=== PATIENT | female | born 1980 | race Caucasian/White ===

== ENCOUNTER → 2019-04-06 14:38 | Outpatient (CLI) | payer OTHER, SELFPAY ==
[2019-04-06 16:13] LABS: BUN 16 mg/dL (7-18); Glucose 78 mg/dL (74-106)
[2019-04-06 16:14] LABS: Anion Gap 8 (5-15); Calcium,Total 8.8 mg/dL (8.5-10.1); Chloride 103 mmol/L (98-107); EST Glomerular Filtration Rate 85 mL/min (>60); Est Glom Filt Rate - Afr Amer 103 mL/min (>60); Potassium 3.7 mmol/L (3.5-5.1); Sodium Level 141 mmol/L (136-145); T4 Total, Thyroxin 10.7 ug/dL (4.8-13.9); Thyroid Stim Hormone (TSH) 1.65 uIU/mL (0.358-3.74)
== END ==
PROVIDERS: Family Provider Family Medicine; PCP Family Medicine; Referring Provider Family Medicine; Visit Provider Family Medicine
DX: Z00.00 Encounter for general adult medical examination without abnormal findings (principal); E03.9 Hypothyroidism, unspecified; I10 Essential (primary) hypertension
CPT/HCPCS: 36415; 80048; 84436; 84443

== ENCOUNTER 2019-05-25 12:00 | Outpatient (RCR) | payer OTHER, SELFPAY ==
[2019-05-05 15:05] VITALS: BMI 37.8
--- NOTE | 2019-05-25 09:25 | HP.PTEVAL ---
Patient's Visit Information DIAMOND BLEVINS is a 38 year old F referred to Physical Therapy by Malissa Herndon MD with a diagnosis of Malasia. Date of Evaluation: 05/19/19 Physical Therapist: Mark Caputo DPT - Visit Plan Frequency: 1-2x /Week Duration: 4-6 Weeks Plan: Start with extension progress: Prone on elbows--> to REIL only if not causing increased symptoms. Add in HS and hip flexor stretching. Progress to neutral spine core stability execises as tolerated. May use modalities if needed. - Subjective Findings: Pt. is here today for her initial evaluation with diagnosis of malasia. Pt. reprots having low back pain on and off for years, but recently has becoming worse. Pt. has been managing with animal care taker with decent results. Pt. reports pain that starts in the R side of her lumbar spine into her R buttock region. Pt. rates pain at 3/10, worst at 5/10. 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 Pt. reports increased pain with lifting, bending and twisting. Decreased pain with walking and sitting is usually worse. Pt. reprots no pain while sleeping and mornings are usually okay. She denies N/T and has not had any imaging. Pt. is hopeful to reduce symptoms in order to get back to all recreational an work activties without limitations. - Pain Lumbar spine Pain Intensity (Out of 10): 3 Pain Intensity Range: 1, 5 - Objective POSTURE: Pt. has general flexed posture, but is able to improve. Pt. has slight anterior pelov tilt. PALPATION: Pt. has tenderness with spring testing at L3-S1 worse at L4/L5. No radiacular symptoms with spring testing. Slight hypomobility noted at L4/L5. NEURO: normal throuhgout. ROM: Lumbar spine: flexion nil loss increase NW, ext min loss increase- better; SB nil loss bilat NE, rotatino nil loss nitza NE. Pt. has tight HS bilaterally. MMT: PT. has full strength of BLEs, execept 4/5 hip abd bilat. Core strength- poor. GAIT: Pt. has normal gait pattern, but does have slight flexed posture. Pt. has greatest difficulty with going from sitting to standing motions. - Special Tests L/S Slump test left side: Negative L/S Slump test right side: Negative L/S Left Straight Leg Raise: Negative L/S Right Straight Leg Raise: Negative - Goals Goal 1:: Pt. to be I with HEP. Goal Time Frame: 4-6 Weeks Goal 2:: Pt. to have full lumbar ROM without increase in symptoms. Goal Time Frame: 4-6 Weeks Goal 3:: Pt. to ahve increased core strength to fair. Goal Time Frame: 4-6 Weeks Goal 4:: Pt. to work with 0-1/10 pain in lumbar spine. Goal Time Frame: 4-6 Weeks Goal 5:: Pt. to be able to sit for atleast 30 min without increase in symptoms. Goal Time Frame: 4-6 Weeks - Rehabilitation Potential Physical Therapy Diagnosis: Pt. hs signs and symptoms consistent with low back pain with minamal radicular symptoms. Pt. has signs of a lumbar derangement and would benefit from light extension motions. Pt. did well with prone on elbows, but has slight increase in symptoms with REIL. Pt. would benefit from PT to work on lumbar ROM and core stability exercises. Rehabilitation Potential: Excellent - Anticipated Interventions Patient/Client Instruction: Educate patient on: Condition, Plan of Care, Risk Factors, Benefits of Fitness Program For the Purpose of:: To improve decision making, To facilitate caregiver knowledge, To improve self management, To prevent re-injury, To improve ability to perform tasks related to life management, To improve tolerance to ADL's Therapeutic Exercise to Include: Strength training, Power training, Postural training, Flexibilty training, Passive ROM, Active ROM, Dynamic Lumbar Stabilization, [place] Exercises For the Purpose of:: To decrease pain, To decrease swelling/inflammation, To increase ROM, To improve nutrient delivery to tissue, To increase oxygenation perfusion, To improve muscle performance and motor function, To improve health of tissue, To decrease soft tissue restriction, To increase flexibility/ROM IF ES: Yes Cryotherapy (ice pack, ice massage): Yes Ultrasound (thermal/non thermal): Yes For the Purpose of:: To decrease pain, To decrease swelling/inflammation, To increase ROM, To improve nutrient delivery to tissue, To increase oxygenation perfusion, To improve muscle performance and motor function Thank you for the opportunity to evaluate your patient. For Medicare and Medicare HMO plans, please review the plan of care and approve it. It will need to be FAXED BACK to us at [phone] for Medicare purposes. For Medicare only, by signing this I certify the plan of care. Please let me know if there are questions or concerns regarding this plan of care. Physician Signature: Date:
== END 2019-05-25 19:00 | disposition home or self-care (01) ==
LOC: PT 12:00
PROVIDERS: Family Provider Family Medicine; PCP Family Medicine; Referring Provider Family Medicine; Visit Provider Family Medicine
DX: M79.10 Myalgia, unspecified site (principal)
CPT/HCPCS: 97110; 97161

== ENCOUNTER → 2020-01-06 09:49 | Outpatient (CLI) | payer OTHER, SELFPAY ==
[2019-05-30 13:32] VITALS: BMI 37.8
[2020-01-06 13:11] LABS: Anion Gap 6 (5-15); BUN 16 mg/dL (7-18); BUN/Creat Ratio 19.1 RATIO (10-20); Chloride 103 mmol/L (98-107); Creatinine, Serum 0.84 mg/dL (0.55-1.02); EST Glomerular Filtration Rate 80 mL/min (>60); Est Glom Filt Rate - Afr Amer 97 mL/min (>60); Glucose 107 mg/dL (74-106); Potassium 3.6 mmol/L (3.5-5.1); Sodium Level 136 mmol/L (136-145); Thyroid Stim Hormone (TSH) 1.89 uIU/mL (0.358-3.74)
== END ==
PROVIDERS: PCP Family Medicine; Visit Provider Family Medicine
DX: I10 Essential (primary) hypertension (principal); E03.9 Hypothyroidism, unspecified
CPT/HCPCS: 36415; 80048; 84443

== ENCOUNTER → 2020-02-03 | Outpatient (CLI) | payer OTHER, SELFPAY ==
[2020-02-03 11:29] VITALS: BMI 37.8
[2020-02-07 14:51] LABS: HPV APTIMA, High Risk Negative (Negative)
== END | disposition home or self-care (01) ==
LOC: LABSPEC 16:35
PROVIDERS: PCP Family Medicine; Referring Provider Nurse Practitioner Women's Health; Visit Provider Nurse Practitioner Women's Health
DX: Z12.4 Encounter for screening for malignant neoplasm of cervix (principal)
CPT/HCPCS: 87624; 88175; G0145

== ENCOUNTER → 2020-03-26 12:30 | Outpatient (CLI) | payer OTHER, SELFPAY ==
[2020-02-03 11:29] VITALS: BMI 37.8
--- NOTE | 2020-03-26 12:33 | RAD_ITS ---
STUDY: X-RAY - LUMBAR SPINE REASON FOR EXAM: Female, 39 years old. Backache after lifting a heavy object TECHNIQUE: 5 view(s) of the lumbar spine were obtained. COMPARISON: None FINDINGS: Normal lumbar lordosis. There is no substantial scoliosis. There is a normal alignment of the vertebrae. Normal vertebral bodies and endplates. Normal disc space heights. The soft tissue structures are unremarkable. RAD/L/S Spine Min 4 Views IMPRESSION: Normal x-ray examination of the lumbar spine. Electronically Signed: Augustin Stevens MD at 13:28 EDT , Service support ,
== END ==
PROVIDERS: PCP Family Medicine; Referring Provider Family Medicine; Visit Provider Family Medicine
DX: M54.9 Dorsalgia, unspecified (principal)
CPT/HCPCS: 72110

== ENCOUNTER 2020-05-22 13:30 | Outpatient (RCR) | payer OTHER, SELFPAY ==
[2020-02-03 11:29] VITALS: BMI 37.8
--- NOTE | 2020-04-05 18:13 | HP.PTEVAL_ITS ---
Patient's Visit Information DIAMOND BLEVINS is a 39 year old F referred to Physical Therapy by Dr. Malissa Herndon MD with a diagnosis of LUMBAR SPINE. Date of Evaluation: 04/05/20 Physical Therapist: Keanu Gann, PT, Cert MDT, OCS - Visit Plan Frequency: 2x /Week Duration: 4 Weeks Plan: PT INTERVENTIONS JOEY EX'S ,MANUAL THERAPY ,POSTURAL EX'S,DLS ABD/BACK - Subjective This 39 y/o female presents to physical therapy with LUMBAR STRAIN. Patient has had pain past 2years . Patient lifting furniture next day severe pain unable to bed OOB. Another day 40 bags several with similar pain. Aggravating factors lifting ,bending sitting,change of motion. Seen DR lyudmila berman CP. Patient did have some parathesia toes right,but improved. Coughing/sneezing +. Bowel/bladder -.Patient see's chiropractor. Patient symptoms affects QOL and job demands. SOCAIL: . 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 GAIT: reciprocal pattern. NEURO: deneis parathesia/tingling ,reflexes L3-4,L4-5,L5-S1 2/3. MMT: quads/hams/hip flexion 4/5,ankle 4/5. L UMBAR ROM: flexion min loss,extension min,side glides WFL. FLEXABLITY: [place] loss with + ANR left - Special Tests L/S Slump test left side: Positive L/S Slump test right side: Negative L/S Left Straight Leg Raise: Negative L/S Right Straight Leg Raise: Positive Lumbar Standing: Flexion - Mechanical Response: No effect Lumbar Standing: Flexion - Symptoms During Testing: Increases Lumbar Standing: Flexion - Symptoms After Testing: Worse Lumbar Standing: Extension - Mechanical Response: Increases motion Lumbar Standing: Extension - Symptoms During Testing: Decreases Lumbar Standing: Extension - Symptoms After Testing: Better Comments:: LUMBAR Lumbar Standing: Right Side Glides - Mechanical Response: No effect Lumbar Standing: Right Side [place] - Symptoms During Testing: No effect Lumbar Standing: Right Side [place] - Symptoms After Testing: No effect Lumbar Standing: Left Side [place] - Mechanical Response: No effect Lumbar Standing: Left Side [place] - Symptoms During Testing: No effect Lumbar Standing: Left Side [place] - Symptoms After Testing: No effect Lumbar Lying: Flexion - Mechanical Response: No effect Lumbar Lying: Flexion - Symptoms During Testing: Abolishes Lumbar Lying: Flexion - Symptoms After Testing: Worse Lumbar Lying: Extension - Mechanical Response: Increases motion Lumbar Lying: Extension - Symptoms During Testing: Abolishes Lumbar Lying: Extension - Symptoms After Testing: Better - Goals Goal 1:: Patient to be I with HEP. Goal Time Frame: 4-6 Weeks Goal 2:: Patient to improve posture/body mechanics. Goal Time Frame: 4-6 Weeks Goal 3:: Patient decrease lumbar pain and radicular symptoms by 75% or > to improve function. Goal Time Frame: 4-6 Weeks Goal 4:: Patient to inmprove lumbar ROM for function of recovery Goal Time Frame: 4-6 Weeks Goal 5:: Patient to back owestry back by 5 points or > to improve QOL. Goal Time Frame: 4-6 Weeks Goal 6:: Patient be d/c to prophalxis Goal Time Frame: 4-6 Weeks - Rehabilitation Potential Physical Therapy Diagnosis: Patient appears to have lumbar derrangement with disc involvemnt with symptoms worse with flexion ,sitting,lifting ,intermitant symptoms abolsihed with joey extension with increase mechanical motion thus benifit from skilled PT Rehabilitation Potential: Good - Anticipated Interventions Patient/Client Instruction: Educate patient on: Condition, Plan of Care For the Purpose of:: To decrease pain, To increase ROM, To improve muscle performance and motor function, To improve ability to perform ADL's, To increase tolerance to activity/condition/position, To improve ability of physical actions for home/community/work/leisure, To improve health of tissue, To decrease soft tissue restriction, To increase flexibility/ROM, To reduce risk of recurrence, To prevent re-injury Therapeutic Exercise to Include: Strength training, Postural training, Flexibilty training, Dynamic Lumbar Stabilization, Joey Exercises For the Purpose of:: To decrease pain, To increase ROM, To increase oxygenation perfusion, To improve muscle performance and motor function, To increase tolerance to activity/condition/position, To improve ability of physical actions for home/community/work/leisure Thank you for the opportunity to evaluate your patient. For Medicare and Medicare HMO plans, please review the plan of care and approve it. It will need to be FAXED BACK to us at [phone] for Medicare purposes. For Medicare only, by signing this I certify the plan of care. Please let me know if there are questions or concerns regarding this plan of care. Physician Signature: Date:
--- NOTE | 2020-09-05 13:35 | HP.PT.NRP ---
DIAMOND BLEVINS was seen in my office for initial evaluation on 04/05/20. The following Plan of Care was established for this patient: Initial Frequency: 2x /Week Initial Duration: 4 Weeks Patient/Client Instruction: Educate patient on: Condition, Plan of Care For the Purpose of:: To decrease pain, To increase ROM, To improve muscle performance and motor function, To improve ability to perform ADL's, To increase tolerance to activity/condition/position, To improve ability of physical actions for home/community/work/leisure, To improve health of tissue, To decrease soft tissue restriction, To increase flexibility/ROM, To reduce risk of recurrence, To prevent re-injury Therapeutic Exercise to Include: Strength training, Postural training, Flexibilty training, Dynamic Lumbar Stabilization, Joey Exercises For the Purpose of:: To decrease pain, To increase ROM, To increase oxygenation perfusion, To improve muscle performance and motor function, To increase tolerance to activity/condition/position, To improve ability of physical actions for home/community/work/leisure This patient was last seen in our office . Pertinent comments regarding their Physical therapy will appear below: Patient seen for PT for back pain for DLS and joey ex's . Doing well thus d/c At this point I will be discontinuing this patient from physical therapy. I would be happy to see this patient again in the future if found appropriate by the physician. Thank you! Keanu Gann, PT, Cert MDT, OCS
== END 2020-05-22 19:00 | disposition home or self-care (01) ==
LOC: PT 13:30
PROVIDERS: PCP Family Medicine; Referring Provider Family Medicine; Visit Provider Family Medicine
DX: S39.012D Strain of muscle, fascia and tendon of lower back, subsequent encounter (principal)
CPT/HCPCS: 97110; 97162; 97530

== ENCOUNTER 2021-01-02 07:35 | Outpatient (RCR) | payer OTHER, SELFPAY ==
[2020-02-03 11:29] VITALS: BMI 37.8
== END 2021-01-04 23:59 ==
LOC: EMPH 07:35
PROVIDERS: PCP Family Medicine; Visit Provider Family Medicine Geriatric Medicine
DX: Z03.818 Encounter for observation for suspected exposure to other biological agents ruled out (principal)
CPT/HCPCS: 87426

== ENCOUNTER → 2021-07-10 12:47 | Outpatient (CLI) | payer OTHER, SELFPAY ==
--- NOTE | 2021-07-10 12:51 | BI_ITS ---
MAMMOGRAPHY - BILATERAL SCREENING REASON FOR EXAM: Female, 40 years old. Routine annual screening examination. PERTINENT HISTORY: Aunt with breast cancer. TECHNIQUE: Digital bilateral breast guero (3D mammographic acquisition) in the CC and MLO projections. 2-D mediolateral oblique (MLO) and craniocaudad (CC) views of both breasts were obtained. CAD: Full Field Digital Mammography with Computer Added Detection was performed. COMPARISON: None. Baseline examination. FINDINGS: Breast Composition: The breasts are heterogeneously dense, which may obscure small masses. There are no dominant masses or suspicious calcifications. Small benign-appearing bilateral axillary lymph nodes. No other significant abnormalities are identified. BI/SCRN MAMM (CAD)W/GUERO BILAT IMPRESSION: Negative screening mammogram. Yearly followup mammogram recommended. (A) ASSESSMENT CATEGORY: BIRADS Category 2: Benign. A letter regarding these results will be sent to the patient by the facility within 30 days. Approximately 10% of breast cancers are not detected by mammography. A normal mammogram should not delay biopsy of a clinically suspicious abnormality. [id number] Electronically Signed: Archie Young MD at 14:10 EDT , Service support ,
[2021-07-10 14:36] LABS: Absolute Lymphocyte Count 2.26 X10^3/uL (0.83-4.51); Absolute Neutrophil Count 5.4 X10^3/uL (2.0-7.7); Basophil# 0.07 X10^3/uL; Basophil% 0.8 % (0-1); Eosinophils% 2.3 % (0-5); Hematocrit 40.9 % (37-47); Lymphocyte # 2.26 X10^3/ul (0.83-4.51); Lymphocyte % 26.4 % (19-41); Mean Corp Hgb Conc 31.8 g/dL (32-36); Mean Corpuscular Hgb 28.3 pg (27.0-32.0); Mean Corpuscular Volume 88.9 fL (81-99); Mean Platelet Vol. 9.3 fl (6.2-12.0); Monocyte# 0.64 X10^3/uL; Monocyte% 7.5 % (0-10); NRBC Flagged by Analyzer 0 % (0-5); Neutrophil # 5.35 X10^3/uL (2.7-7.7); Neutrophil % 62.6 % (47-70); Platelet Count 359 K/mm3 (150-450); RBC Distribution Width SD 39.1 fl (35.1-43.9); White Blood Count 8.6 K/mm3 (4.4-11.0)
== END ==
LOC: OPBI 12:48 → LAB 14:16
PROVIDERS: PCP Family Medicine; Referring Provider Nurse Practitioner Women's Health; Visit Provider Nurse Practitioner Women's Health
DX: N93.9 Abnormal uterine and vaginal bleeding, unspecified (principal); Z12.31 Encounter for screening mammogram for malignant neoplasm of breast; Z13.29 Encounter for screening for other suspected endocrine disorder
CPT/HCPCS: 36415; 77063; 77067; 84443; 85025

== ENCOUNTER → 2021-07-19 08:03 | Outpatient (CLI) | payer OTHER, SELFPAY ==
--- NOTE | 2021-07-19 08:05 | US_ITS ---
STUDY: ULTRASOUND TRANSVAGINAL CLINICAL: Female, 40 years old. menorrhagia TECHNIQUE: Transabdominal and Transvaginal COMPARISON: None. FINDINGS: Normal uterine size measuring 9.0 x 4.5 x 5.8 cm in maximal craniocaudal dimension. There are no myometrial masses. Normal endometrial thickness measuring 9 mm. 2.7 cm oval isoechoic mass either within or adjacent to the posterior aspect of the endometrium in the body the uterus worrisome for endometrial mass or submucosal fibroid. Correlation with hysteroscopy is recommended.. Normal uterine cervix. Normal right ovary, measuring 4.5 x 2.4 x 4.3 cm. There are multiple follicles without a dominant cyst. Normal left ovary, measuring cm. There are multiple follicles without a dominant cyst. There is no free fluid in the pelvis. Polycystic ovary disease: No. US/Pelvic (Non ) IMPRESSION: 2.7 cm oval isoechoic mass either within or adjacent to the posterior aspect of the endometrium and correlation with hysteroscopy would be useful. Electronically Signed: Darvin Lazo MD at 17:05 EST Tel , Service support ,
--- NOTE | 2021-07-19 08:05 | US_ITS ---
STUDY: ULTRASOUND TRANSVAGINAL CLINICAL: Female, 40 years old. menorrhagia TECHNIQUE: Transabdominal and Transvaginal COMPARISON: None. FINDINGS: Normal uterine size measuring 9.0 x 4.5 x 5.8 cm in maximal craniocaudal dimension. There are no myometrial masses. Normal endometrial thickness measuring 9 mm. 2.7 cm oval isoechoic mass either within or adjacent to the posterior aspect of the endometrium in the body the uterus worrisome for endometrial mass or submucosal fibroid. Correlation with hysteroscopy is recommended.. Normal uterine cervix. Normal right ovary, measuring 4.5 x 2.4 x 4.3 cm. There are multiple follicles without a dominant cyst. Normal left ovary, measuring cm. There are multiple follicles without a dominant cyst. There is no free fluid in the pelvis. Polycystic ovary disease: No. US/Transvaginal Non- IMPRESSION: 2.7 cm oval isoechoic mass either within or adjacent to the posterior aspect of the endometrium and correlation with hysteroscopy would be useful. Electronically Signed: Darvin Lazo MD at 17:05 EST Tel , Service support ,
== END ==
PROVIDERS: PCP Family Medicine; Referring Provider Nurse Practitioner Women's Health; Visit Provider Nurse Practitioner Women's Health
DX: N92.0 Excessive and frequent menstruation with regular cycle (principal)
CPT/HCPCS: 76830; 76856

== ENCOUNTER 2021-10-22 09:05 | Day surgery (SDC) | payer OTHER, SELFPAY ==
[2021-10-16 08:18] LABS: Absolute Lymphocyte Count 3.65 X10^3/uL (0.83-4.51); Absolute Neutrophil Count 6.6 X10^3/uL (2.0-7.7); Basophil# 0.06 X10^3/uL; Basophil% 0.5 % (0-1); Eosinophil# 0.24 X10^3/uL; Eosinophils% 2.1 % (0-5); Hematocrit 40.2 % (37-47); Hemoglobin 12.8 g/dL (12.0-15.0); Lymphocyte # 3.65 X10^3/ul (0.83-4.51); Lymphocyte % 32.2 % (19-41); Mean Corp Hgb Conc 31.8 g/dL (32-36); Mean Corpuscular Hgb 28.3 pg (27.0-32.0); Mean Corpuscular Volume 88.7 fL (81-99); Mean Platelet Vol. 9.5 fl (6.2-12.0); Monocyte# 0.72 X10^3/uL; Monocyte% 6.3 % (0-10); NRBC Flagged by Analyzer 0 % (0-5); Neutrophil # 6.55 X10^3/uL (2.7-7.7); Neutrophil % 57.8 % (47-70); Platelet Count 394 K/mm3 (150-450); RBC Distribution Width CV 12.4 % (11.6-14.6); Red Blood Count 4.53 M/mm3 (4.2-5.4); White Blood Count 11.3 K/mm3 (4.4-11.0)
[2021-10-16 08:35] LABS: Anion Gap 8 (5-15); BUN 19 mg/dL (7-18); BUN/Creat Ratio 24.8 RATIO (10-20); Chloride 100 mmol/L (98-107); Creatinine, Serum 0.76 mg/dL (0.55-1.02); EST Glomerular Filtration Rate 88 mL/min (>60); Est Glom Filt Rate - Afr Amer 107 mL/min (>60); Glucose 92 mg/dL (74-106); Potassium 3.5 mmol/L (3.5-5.1); Sodium Level 136 mmol/L (136-145)
--- NOTE | 2021-10-22 09:09 | HP.PCM_ITS ---
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 Is patient in pain?: No Allergies No Known Allergies Allergy (Verified 10/09/21 15:03) Medications lisinopril 10 mg-hydrochlorothiazide 12.5 mg tablet 1 tab PO DAILY 05/05/19 [History Confirmed 10/09/21] diphenhydramine HCl 25 mg capsule 25 mg PO TID PRN 07/10/21 [History Confirmed 10/09/21] melatonin 3 mg capsule 3 mg PO HS PRN 07/10/21 [History Confirmed 10/09/21] potassium chloride 10 mEq capsule,extended release 10 meq PO DAILY 07/10/21 [History Confirmed 10/09/21] Post menopausal: No Patient : No : No [facility] Medical History COVID-19 vaccine administered COVID-19 vaccine administered Hypertension Hyperthyroidism Menorrhagia with regular cycle Surgical History History of cholecystectomy History of tonsillectomy History of wisdom tooth extraction Family History Father Heart disease Other Hypertension Thyroid disorder Social History Smoking Status: Never smoker alcohol intake: never substance use type: does not use caffeine: No what type of physical activity do you participate in: bicycling frequency: 1-2 times per week seatbelt use: always do you feel safe at home: Yes 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 She is scheduled for a hysteroscopy D&C, symphion removal of fibroid and laparoscopic bilateral salpingectomy, Pregancy History 0 Elective abortions Hx Para Spontaneous abortions Hx # Term Pregnancies Ectopic pregnancies Hx # Pregnancies Multiple births # of living children ROS Const ROS Unobtainable: All systems reviewed & are unremarkable except as noted in H Resp Resp: Reports system reviewed and no additional complaints, except as documented; Denies cough GI GI: Reports as per HPI Psych Psych: Reports system reviewed and no additional complaints, except as documented Exam Const General: cooperative, healthy appearing, comfortable and no acute distress Resp Effort & Inspection: normal respiratory effort Skin General: no rashes or lesions noted Psych Appearance: grossly normal Speech and Movement: speech and movement normal Coding Level of Care Code Off vis,est,level 3 Diagnoses COVID-19 vaccine administered Z23 Menorrhagia with regular cycle N92.0 Assessment and Plan Assessment and Plan (1) COVID-19 vaccine administered: Status: Acute Comment: Maderna doses + booster (2) Menorrhagia with regular cycle: Status: Acute Comment: 2.5 cm submucosal lesion, plan symphion, laparoscopic bs and possible sendy Plan Details Goals & Barriers: Goals Improve balance Improve ability to work comfortably Decrease spasm UPDATE- I have seen the patient and performed any clinically relevant updates to the history and physical exam. Karli Anne MD
[2021-10-22 09:42] VITALS: BP 135/86; PULSE 83; RESP 18; TEMP 37.3; O2SAT 100; BMI 40.6
[2021-10-22 09:42] LABS: Internal QC Validated? YES +Cl - CLEAR BKGD; Pregnancy, Urine Negative Negative
[2021-10-22] MEDS: Lactated Ringers 1,000 ML 15 ML IV ×2 (09:55→11:45)
--- NOTE | 2021-10-22 10:40 | FALS_PTH ---
PATIENT: DIAMOND BLEVINS LOC: [facility] [place] U#:[id number] AGE/SX: 41/F ROOM: RE10/22/[address]: Dr. Karli Anne MD : 1980 BED: DIS: 10/22/2021 SPEC #: [id number] RECD: 10/22/21 14:50 STATUS: MISSY DAVEY #: [id number] SHRUTHI: 10/22/21 10:[address]: Karli Anne DEPT: SURGICAL PATHOLOGY RECD BY: Keith Deng ENTERED: 10/23/21 11:39 SP TYPE: FALL TUBES OTHR DR: MD Dr. Arnulfo Jiang MD Tissues: A - Fallopian tube Endometrium, NOS Procedures: Surgery Specimen Level II Surgery Specimen Level IV HEADER OPERATION: Hysteroscopy, D & C Symphion, hysteroscopic myomectomy PRE-OP DIAGNOSIS: Menorrhagia TISSUE SUBMITTED: A ? Bilateral fallopian tubes, B ? Endometrial curettings MICROSCOPIC DIAGNOSIS A. Bilateral fallopian tubes, salpingectomy: Bilateral fallopian tubes, no pathologic diagnosis. B. Endometrial curettings: Secretory endometrium. Fragments of myometrium, consistent with leiomyoma. Fragments of benign endocervical mucosa. SJ:clifton 10/24/2021 MICROSCOPIC DESCRIPTION Slides are reviewed. GROSS DESCRIPTION A - Received in fixative is one container labeled with the patient's name and designated bilateral fallopian tubes. The specimen consists of two fallopian tubes with an average length of 6 cm and has an average diameter of 0.6 cm. One fallopian tube contains a paratubal cyst measuring 1 cm and containing clear fluid. Both fallopian tubes have normal fimbriated ends. Tool And Cutter Grinder sections are submitted in two cassettes as follows: 1 - one fallopian tube, 2 - the other fallopian tube. B - Received in fixative is one container labeled with the patient's name and designated endometrial curettings. The specimen consists of multiple irregular and somewhat rubbery fragments of pink-cooley soft tissue that in aggregate measure 6 x 4 x 1.8 cm. The specimen is totally submitted in 12 cassettes. / AM:clifton 10/23/2021 TC:1 CPT: 50968 x2, 55170
--- NOTE | 2021-10-22 10:51 | PCM.OPRPT ---
Problems Associated Problem List Diagnoses (1) Menorrhagia with regular cycle: (2) COVID-19 vaccine administered: Report of Operation Date of Procedure: 10/22/21 Pre-Operative Diagnosis: aub submucosal fibroid Post-Operative Diagnosis: same Surgery/Procedure Performed:: hysteroscopic myomectomy with symphion device, d and c, laparoscopic bilateral salpingectomy Description of Surgical Findings:: submucosal fibroid bilateral tubes left sigmoid to adnexal adhesions customer experience associate: Jeni Bermeo Type of Anesthesia: General Special Medications: none Specimen's removed: emc fibroid bilateral tubes Drains: hamm Estimated Blood Loss (mL): 75 Fluids Replaced: crystalloid 1800 cc deficit Complications Patient was taken in the operating room and was placed under general anesthesia was prepped and draped in normal sterile fashion in the dorsal lithotomy position. Bladder was drained of clear urine and SCDs were on preoperatively. Uterus was sounded and a uterine manipulator was placed after dilating. Attention was then paid to the abdominal portion of the procedure and the umbilicus was elevated with towel clamps and injected with Marcaine and after a 5 mm incision was made and the Veress needle was entered into the abdomen confirmed to be intra-abdominal with a low opening pressure of less than 5 mmHg. Abdomen was insufflated with CO2 gas and a 5 mm optical trocar was placed under direct visualization. A left lower quadrant 5 mm port and a 5 mm port suprapubically and then llq were placed under direct visualization. Uterus was well visualized and bilateral fallopian tubes identified and bilateral tubes were elevated and transecting across the mesosalpinx and the attachment to the uterine corpus bilaterally the tubes were removed without complication. llq adhesions were taken down to perform the salpingectomy. Excellent hemostasis was noted. Fallopian tubes were removed through the lower port sites without complication. Liver and upper abdomen were visualized notably within normal limits and no other gross abnormalities were seen in the abdomen. All instruments removed from the abdomen after gas was desufflated. Port sites were closed with 3-0 Monocryl Steri's and op sites were applied. Uterine manipulator removed A weighted speculum was placed in the vagina and the anterior lip of the cervix was grasped with a single-tooth tenaculum. A paracervical block was placed with 1% lidocaine. Cervix was progressively dilated to allow passage of a 5 mm hysteroscope. The lining was fully visualized and noted to have a large submucosal fibroid present. Uterine sounded to 10 cm. Using the symphion device, the submucosal fibroid was progressively removed without complications. Direct visual curettage was performed using the device , and all specimens were sent to pathology. All instruments were removed from the vagina and excellent hemostasis was noted. Patient was awoken and taken to recovery in stable condition. All instruments removed from the vagina and patient was awoken and taken recovery in stable condition. Multi Select Codes Urinary/Genital Urinary/Genital CPT Codes: 85373 Hysteroscopic myomectomy (3 cm) and 72251 Laproscopic BS/O
[2021-10-22] MEDS: Bupivacaine 0.25% 30 ML Vial (11:29)
--- NOTE | 2021-10-22 11:55 | DCINST_ITS ---
Discharge Instructions Diet Discharge Diet: No restrictions Activity Discharge Activity: Return to Normal Activity, May Not Drive (for 2 weeks or while taking narcotic pain meds.), May Shower and May Take a Tub Bath (in 7 days) May resume sexual activity in: 1 week Weight Bearing Status: Full weight bearing Dressing / Incision Call your doctor if your incision/area has: Continuous Slow Oozing, Sudden Increased Bleeding, Increased Pain/ Swelling, Increased Redness and Foul Smelling Discharge Call your doctor if you observe: Fever of 101 or Higher, Using more than 1 pad per hour, Shortness of breath, Chest pain and Uncontrolled pain Suture Line Care: Avoid Pulling/Pushing and Avoid Pinching/Bending Remove Dressing in: 1 week (if present) Cleanse incision/area with: Soap & Water and Keep Dressing Clean & Dry Follow Up Care When: Call to make an appointment with your doctor for a fu/incision check in 1- 2 weeks. Test Results: Test results from this visit will be discussed in further detail at your follow-up appointment, if applicable. Discharge Plan Admission Primary Reason for Your Visit: sterilization and fibroid removal hysteroscopically Attending Provider: Karli Anne Primary Care Provider: Arnulfo Rainey Consulting Providers: Curt Rhodes Discharge Orders/Prescriptions Prescriptions: New oxycodone-acetaminophen [Percocet] 5-325 mg tablet 1 tab PO Q6H PRN (Reason: pain) 7 Days Qty: 20 RF: 0 naproxen [naproxen] 500 MG tablet 500 mg PO BID PRN PRN (Reason: Pain) Qty: 30 RF: 1 Continued lisinopril-hydrochlorothiazide 10-12.5 mg tablet 1 tab PO DAILY RF: 0 potassium chloride 10 mEq capsule, extended release 10 meq PO DAILY RF: 0 diphenhydramine HCl [Benadryl] 25 mg capsule 25 mg PO TID PRN (Reason: Sleep) RF: 0 melatonin 3 mg capsule 3 mg PO HS PRN (Reason: Sleep) RF: 0 Referrals / Follow Up: Arnulfo Rainey MD [Primary Care Provider] - Disposition Disposition (needs filled in before D/C Order can be placed): Home, Self Care
[2021-10-22 12:05] VITALS: BP 124/89; BP 135/86; PULSE 86; RESP 18; TEMP 36.6; O2SAT 95
[2021-10-22 12:15] VITALS: BP 126/70; BP 135/86; PULSE 77; RESP 16; O2SAT 92
[2021-10-22 12:30] VITALS: BP 111/54; BP 135/86; PULSE 78; RESP 16; O2SAT 93
[2021-10-22 12:42] VITALS: BP 109/57; BP 135/86; PULSE 79; RESP 16; TEMP 36.4; O2SAT 95
[2021-10-22 14:00] VITALS: BP 100/68; BP 135/86; PULSE 78; RESP 16; TEMP 36.6; O2SAT 96
== END 2021-10-22 23:59 | disposition home or self-care (01) ==
LOC: SDC 09:05 → AC 09:07
PROVIDERS: Anesthesiology; PCP Family Medicine; Referring Provider Obstetrics & Gynecology; Visit Provider Obstetrics & Gynecology
PROC: 0UB98ZZ Excision of Uterus, Via Natural or Artificial Opening Endoscopic (ICD-10-PCS; CPT 58558; principal; 2021-10-22 10:25)
PROC: (CPT 58661; 2021-10-22 10:25)
DX: D25.0 Submucous leiomyoma of uterus (principal); N92.0 Excessive and frequent menstruation with regular cycle; N73.6 Female pelvic peritoneal adhesions (postinfective); I10 Essential (primary) hypertension; Z90.49 Acquired absence of other specified parts of digestive tract; Z79.899 Other long term (current) drug therapy
CPT/HCPCS: 58561; 58661; 00952; 36415; 80048; 81025; 85025; 86850; 86900; 86901; 88302; 88305; J7120; J2405

== ENCOUNTER 2023-10-11 08:48 | Emergency (ER) | payer OTHER, SELFPAY ==
[2023-10-11 08:49] VITALS: BP 144/91; PULSE 120; RESP 16; TEMP 36.6; O2SAT 99; BMI 35.2
--- NOTE | 2023-10-11 09:05 | ED.VIS.BACK ---
HPI History of Present Illness Chief Complaint: Back Detail of Chief Complaint: Back pain Informant: patient and spouse/S.O. Narrative Narrative: Patient presents to the emergency department complaint of back pain. Patient states that she had some mild discomfort in her back for a couple of weeks. Last evening she bent over to take her socks off before going to bed and had severe onset of pain with nausea. This morning she had a hard time getting out of bed to go to the bathroom. She describes the pain is low in her back and radiating towards her left buttock and left groin. She denies any falls or injuries otherwise. She denies weakness to the extremity. She denies change in bowel or bladder function. Patient not anticoagulated. No other significant medical history. [facility] Medical History Back pain COVID-19 vaccine administered COVID-19 vaccine administered Hypertension Hyperthyroidism Menorrhagia with regular cycle Menorrhagia with regular cycle Non-smoker Skin tear Home Medications lisinopril 10 mg-hydrochlorothiazide 12.5 mg tablet 1 tab PO DAILY 05/05/19 [History Last Taken Unknown] diphenhydramine HCl 25 mg capsule (Benadryl) 25 mg PO TID PRN Sleep 07/10/21 [History Last Taken Unknown] melatonin 3 mg capsule 3 mg PO HS PRN Sleep 07/10/21 [History Last Taken Unknown] potassium chloride 10 mEq capsule,extended release 10 meq PO DAILY 07/10/21 [History Last Taken Unknown] cyclobenzaprine 10 mg tablet 10 mg PO TID PRN Muscle Spasm #20 TABLETS 10/11/23 [Rx Last Taken Unknown] hydrocodone-acetaminophen 5-325mg 5mg-325mg 1 tab PO Q4H PRN PRN Pain 3 days #15 TABLETS 10/11/23 [Rx Last Taken Unknown] methylprednisolone 4 mg tablets in a dose pack (Medrol (Bob)) 4 mg PO DAILY #21 tabs 10/11/23 [Rx Last Taken Unknown] Allergy/AdvReac Type Severity Reaction Status Date / Time No Known Allergies Allergy Verified 10/11/23 08:49 Family History Father Heart disease Other Hypertension Thyroid disorder Surgical History H/O myomectomy History of cholecystectomy History of tonsillectomy History of wisdom tooth extraction Status post bilateral salpingectomy Social History Smoking Status: Never smoker alcohol intake: never substance use type: does not use caffeine: No what type of physical activity do you participate in: bicycling frequency: 1-2 times per week seatbelt use: always do you feel safe at home: Yes additional social history: Car- [employer] Patient works at [employer] ROS ROS ED Review of Systems ROS Unobtainable: other Constitutional Constitutional ED: Reports lethargy; Denies chills, fever(s), sweats or weight loss Eyes Eyes: Denies blurry vision, change in vision or diplopia ENT ENT ED: Denies rhinorrhea or sore throat Cardiovascular Cardiovascular: Denies chest pain, orthopnea or racing heartbeat Respiratory/Chest Respiratory/Chest: Denies cough, dyspnea, dyspnea on exertion, orthopnea or sputum Gastrointestinal Gastrointestinal: Denies abdominal pain, diarrhea, nausea or vomiting Genitourinary Genitourinary ED: Denies dysuria, hematuria or urinary frequency Musculoskeletal Musculoskeletal: Reports back pain; Denies arthralgias, myalgias or neck pain Integumentary Denies abscess, Abrasions or rash Neurologic Neurologic: Denies headache(s) or weakness Psychiatric Psychiatric: Denies anxiety, depression or suicidal thoughts Endocrine Endocrinology: Denies polydipsia, polyphagia or polyuria Hematologic/Lymphatic Hematologic/Lymphatic: Denies easy bleeding, easy bruising or lymphadenopathy Allergic/Immunologic Allergic/Immunologic ED: Denies mouth swelling, tongue swelling or urticaria EXAM Physical Exam Const Vital Signs: 10/11/23 08:49 Temperature 97.8 F Temperature Source Temporal Pulse Rate 120 H Respiratory Rate 16 Blood Pressure 144/91 H Blood Pressure Mean 108 Pulse Ox 99 Oxygen Delivery Method Room Air Positive well nourished and well developed General Appearance ED: well developed and NAD HEENT Reports TM's clear and moist mucous membranes normocephalic and atraumatic; Negative for trauma or tenderness Tympanic Membrane ED: Yes TM's clear Eyes PERRL and EOMs intact bilaterally General Eye ED: Negative for pale conjunctiva or scleral icterus Neck no lymphadenopathy, supple and no JVD General: Negative for tenderness Chest Wall inspection of chest normal and palpation of chest normal Chest: Negative for tenderness Resp normal respiratory effort and clear to auscultation bilaterally Effort and Inspection: Negative for respiratory distress or pain with movement Auscultation: Negative for rhonchi, wheezes or diminished lung sounds Cardio regular rate, regular rhythm, S1 normal heart sound, S2 normal heart sound and no murmurs Peripheral Pulses: pulses 2+ throughout GI normal to inspection, nondistended, normoactive bowel sounds, soft to palpation, non-tender, non-distended and no masses Back/Spine no CVA tenderness and no thoracic nor lumbar tenderness Back/Spine Narrative: Patient with diffuse tenderness over the lumbar spine as well as the lumbar paraspinal musculature. She has pain about 45 degrees with straight leg raising bilaterally. Deep tendon reflexes plus 2 out of 4 bilaterally at the patella and Achilles. Patient has normal L5 extension. She has normal sensation to light touch bilaterally. Extremity normal to inspection General Extremety ED: Negative for edema General Extremity: Negative for edema Neuro oriented x3, CN's II-XII intact bilaterally, no sensory deficits noted and gait normal Sensorium / Orientation: awake, alert, oriented to person, oriented to place and oriented to time Motor Exam: strength 5/5 throughout and strength abnormal Psych mental status grossly normal Skin no rashes or lesions noted and no wounds MDM MDM MDM Narrative Medical decision making narrative: Patient with back pain made worse by taking socks off. She did not anything for pain here. She agreed to a muscle relaxer. Will give 10 mg of Flexeril p.o. Will obtain plain x-rays of lumbar spine to evaluate for possible compression fracture or joint space narrowing or lytic lesions. Patient was given a dose of Flexeril in the emergency department. At this point she will be given work restrictions. She will be given a prescription for Medrol Dosepak as well as Flexeril and a few Patterson for severe pain. She is advised to follow-up with her primary care physician within next 3 to 5 days. Advised return if worsening pain, weakness to extremities, change in bowel or bladder function, or condition should worsen anyway. There are no red flag symptoms or signs of cauda equina. I do not feel emergent MRI imaging is necessary. Radiography Diagnostic Testing: Clinical Impression(s) from Imaging Studies Lumbar Spine X-Ray 10/11/23 09:22 IMPRESSION: No acute findings in the lumbar spine. Electronically Signed: Andrew Guzmán MD at 9:35 EST , Three-view x-rays of the lumbar spine interpreted by myself as no evidence of fracture or metastatic type lesions. Radiology in agreement. Radiology felt that the disc spaces were maintained. Discharge Plan Triage Chief Complaint: Back ED Provider: Santa Esteves Dx/Rx/DC Orders Clinical Impression: Back pain Instructions: ED Back Spasm, No Trauma, ED Back and Neck Pain, General Prescriptions: New cyclobenzaprine [cyclobenzaprine] 10 mg tablet 10 mg PO TID PRN (Reason: Muscle Spasm) Qty: 20 0RF hydrocodone-acetaminophen [hydrocodone-acetaminophen] 5-325 mg tablet 1 tab PO Q4H PRN PRN (Reason: Pain) 3 Days Qty: 15 0RF methylprednisolone [Medrol (Bob)] 4 mg tablets,dose pack 4 mg PO DAILY Qty: 21 0RF No Action lisinopril-hydrochlorothiazide 10-12.5 mg tablet 1 tab PO DAILY potassium chloride 10 mEq capsule, extended release 10 meq PO DAILY diphenhydramine HCl [Benadryl] 25 mg capsule 25 mg PO TID PRN (Reason: Sleep) melatonin 3 mg capsule 3 mg PO HS PRN (Reason: Sleep) Primary Care Provider: Arnulfo Rainey Referrals: Arnulfo Rainey MD [Primary Care Provider] - 3-5 Days Disposition Disposition: Home, Self Care
[2023-10-11] MEDS: cycloBENZAPRine HCl 10 MG Tablet PO (09:18)
--- NOTE | 2023-10-11 09:22 | RAD_ITS ---
EXAM: XR LUMBOSACRAL SPINE, 2 OR 3 VIEWS CLINICAL INDICATION: back pain TECHNIQUE: Frontal and lateral views of the lumbar spine and sacrum. COMPARISON: No relevant prior studies available. FINDINGS: VERTEBRAE: Mild dextroscoliosis centered at the thoracolumbar junction. Alignment of the lumbar vertebral bodies is otherwise normal. No fracture or subluxation. DISC SPACES: No acute findings. Disc spaces are maintained. RAD/Lumbar Spine 2 or 3 Views IMPRESSION: No acute findings in the lumbar spine. Electronically Signed: Andrew Guzmán MD at 9:35 EST ,
== END 2023-10-11 10:15 | disposition home or self-care (01) ==
PROVIDERS: Emergency Provider Emergency Medicine; PCP Family Medicine; Visit Provider Emergency Medicine
DX: M54.50 Low back pain, unspecified (principal)
CPT/HCPCS: 72100; 99282

== ENCOUNTER → 2024-09-21 | Outpatient (CLI) | payer OTHER, SELFPAY ==
[2024-09-21 14:48] LABS: T4 Free Direct 1.12 ng/dL (0.76-1.46)
[2024-09-21 15:30] LABS: Vitamin D,25 Hydroxy 21.1 ng/mL
[2024-09-23 04:07] LABS: Thyroid Peroxidase AB < 9 IU/mL (0-34)
[2024-09-26 10:07] LABS: HPV APTIMA, High Risk Negative (Negative)
== END | disposition home or self-care (01) ==
LOC: BWCLAB 13:52
PROVIDERS: PCP Family Medicine; Referring Provider Nurse Practitioner Women's Health; Visit Provider Nurse Practitioner Women's Health
DX: Z12.4 Encounter for screening for malignant neoplasm of cervix (principal); Z13.29 Encounter for screening for other suspected endocrine disorder; Z80.3 Family history of malignant neoplasm of breast; Z13.21 Encounter for screening for nutritional disorder; L65.9 Nonscarring hair loss, unspecified
CPT/HCPCS: 36415; 82306; 84439; 84443; 86376; 87624; 88175; G0145

== ENCOUNTER → 2024-09-30 | Outpatient (CLI) | payer OTHER, SELFPAY ==
--- NOTE | 2024-09-30 09:50 | BI_ITS ---
MAMMOGRAPHY - BILATERAL SCREENING REASON FOR EXAM: Female, 44 years old. Routine annual screening examination. PERTINENT HISTORY: Mother with breast cancer. Aunt with breast cancer. TECHNIQUE: Digital bilateral breast guero (3D mammographic acquisition) in the CC and MLO projections. 2-D mediolateral oblique (MLO) and craniocaudad (CC) views of both breasts were obtained. CAD: Full Field Digital Mammography with Computer Added Detection was performed. COMPARISON: Comparison is made with prior study July 10, 2021. FINDINGS: Breast Composition: The breasts are heterogeneously dense, which may obscure small masses. There are no dominant masses or suspicious calcifications. No other significant abnormalities are identified. There has been no significant change since the prior study. BI/SCRN MAMM (CAD)W/GUERO BILAT IMPRESSION: Stable bilateral screening mammogram. Yearly follow-up mammogram recommended. (A) ASSESSMENT CATEGORY: BIRADS Category 1: Negative. A letter regarding these results will be sent to the patient by the facility within 30 days. Approximately 10% of breast cancers are not detected by mammography. A normal mammogram should not delay biopsy of a clinically suspicious abnormality. [id number] Electronically Signed: Archie Young MD at 10:46 EST ,
== END | disposition home or self-care (01) ==
LOC: OPBI 09:50
PROVIDERS: PCP Family Medicine; Referring Provider Nurse Practitioner Women's Health; Visit Provider Nurse Practitioner Women's Health
DX: Z12.31 Encounter for screening mammogram for malignant neoplasm of breast (principal)
CPT/HCPCS: 77063; 77067